=== PATIENT | female | born 1985 ===

== ENCOUNTER 2017-03-29 16:28 | Emergency (ER) | payer MEDICAID ==
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
--- NOTE | 2017-03-31 07:23 | RADIOLOGY REPORT ---
DATE: 03/29/2017. EXAM: LUMBAR SPINE. HISTORY: Back pain. TECHNIQUE: AP, lateral, and oblique views of the lumbar spine were performed. FINDINGS: There is normal height and alignment. No disc space narrowing. No spondylolysis or listhesis. The sacroiliac joints appear normal. IMPRESSION: NEGATIVE LUMBER SPINE EXAMINATION. JOB NUMBER: [id number] MTDD
--- NOTE | 2017-03-31 07:28 | RADIOLOGY REPORT ---
DATE: 03/29/2017. EXAM: LEFT KNEE. HISTORY: Pain. TECHNIQUE: Three views of the left knee were performed. FINDINGS: No evidence of fracture or dislocation. No radiopaque loose body. No joint effusion. IMPRESSION: NEGATIVE LEFT KNEE EXAMINATION. JOB NUMBER: [id number] MTDD
--- NOTE | 2017-03-31 07:31 | RADIOLOGY REPORT ---
DATE: 03/29/2017. EXAM: RIGHT FOOT. HISTORY: Pain. TECHNIQUE: Three views of the right foot were performed. FINDINGS: No evidence of fracture or dislocation. There is degenerative change of the first tarsal/metatarsal joint space. IMPRESSION: JOB NUMBER: [id number] MTDD
== END 2017-03-29 17:42 | disposition home or self-care (01) ==
LOC: ER 16:28
DX: S39.012A Strain of muscle, fascia and tendon of lower back, initial encounter (principal); S86.912A Strain of unspecified muscle(s) and tendon(s) at lower leg level, left leg, initial encounter; S90.31XA Contusion of right foot, initial encounter; W00.0XXA Fall on same level due to ice and snow, initial encounter; Z86.718 Personal history of other venous thrombosis and embolism; Z79.01 Long term (current) use of anticoagulants
CPT/HCPCS: 72110; 99283; 99284

== ENCOUNTER 2017-07-10 17:21 | Emergency (ER) | payer MEDICAID ==
[2017-07-10] MEDS ORDERED: HYOSCYAMINE SULFATE ODT 0.125 MG TAB.SUBL SL ONE (18:25)
[2017-07-10] MEDS ORDERED: ONDANSETRON HCL IV 4 MG/2 ML VIAL IVP ONE (18:25)
--- NOTE | 2017-07-10 18:29 | Emergency Department Record ---
History of Present Illness - General Chief complaint: Vomiting Stated complaint: VOMITING,DIARRHEA, NOT EATING X3 DAYS Source: Patient Mode of Arrival: Ambulatory Limitations: No limitations - History of Present Illness Initial comments: 31 yo female presents to ED for evaluation of nausea, vomiting, and loose stools for the past 3 days. Patient reports that she has been unable to keep anything down. Patient is concerned about possible recurrent pneumonia, does report mild-moderate diffuse abdominal pain as well. Patient denies fevers/ chills, denies health problems other than HTN. MD complaint: Abdominal pain Onset/Timin -: Days(s) Location: Diffuse Radiation: None Severity: Moderate Quality: Aching Consistency: Constant Improves with: None Worsens with: None Associated Symptoms: Nausea/vomiting - Related Data Previous Rx's Medication Instructions Recorded Hyoscyamine Sulfate [Levsin Odt] 0.125 mg PO Q6H PRN #15 tab.subl 07/10/17 Ondansetron [Zofran Odt] 4 mg PO Q6H PRN #15 tab.rapdis 07/10/17 Allergies Allergy/AdvReac Type Severity Reaction Status Date / Time sulfamethoxazole Allergy Intermediate vomit Verified 07/10/17 18:20 [From Bactrim] trimethoprim [From Bactrim] Allergy Intermediate vomit Verified 07/10/17 18:20 Sulfa (Sulfonamide Allergy Mild vomit Verified 07/10/17 18:20 Antibiotics) Review of Systems Constitutional: Denies: Chills, Fever, Malaise, Night sweats Eyes: Denies: Eye discharge, Eye pain ENT: Denies: Dental pain, Ear pain Respiratory: Denies: Cough, Dyspnea Cardiovascular: Denies: Chest pain, Dyspnea on exertion Endocrine: Denies: Fatigue, Heat or cold intolerance Gastrointestinal: Reports: Abdominal pain, Diarrhea, Nausea, Vomiting. Denies: Constipation Genitourinary: Denies: Incontinence, Retention Musculoskeletal: Denies: Arthralgia, Back pain, Gout, Joint swelling Skin: Denies: Bruising, Change in color Neurological: Denies: Abnormal gait, Confusion, Headache, Tingling Psychiatric: Denies: Anxiety Hematological/Lymphatic: Denies: Anemia, Blood Clots Past Medical History - SOCIAL HISTORY Smoking Status: Never smoker Drug Use: None - RESPIRATORY Hx Respiratory Disorders: Yes Hx Asthma: Yes Hx Pulmonary Embolism: Yes - CARDIOVASCULAR Hx Cardio Disorders: Yes Hx Deep Vein Thrombosis: Yes - NEURO Hx Neuro Disorders: No - GI Hx GI Disorders: No - Hx Genitourinary Disorders: No - ENDOCRINE Hx Endocrine Disorders: No - MUSCULOSKELETAL Hx Musculoskeletal Disorders: No - PSYCH Hx Psych Problems: Yes Hx Depression: Yes (bipolar/borderline personality) - HEMATOLOGY/ONCOLOGY Hx Hematology/Oncology Disorders: No Physical Exam - General General Appearance: Alert, Oriented x3, Cooperative, Mild distress Limitations: No limitations - Head Head exam: Atraumatic, Normocephalic, Normal inspection Head exam detail: negative: Abrasion, Contusion, Mazariegos's sign, General tenderness, Hematoma, Laceration - Eye Eye exam: Normal appearance. negative: Conjunctival injection, Periorbital swelling, Periorbital tenderness, Scleral icterus - ENT Ear exam: negative: Auricular hematoma, Auricular trauma Nasal Exam: negative: Active bleeding, Discharge, Dried blood Mouth exam: negative: Drooling, Laceration, Tongue elevation - Neck Neck exam: Normal inspection. negative: Meningismus, Tenderness - Respiratory Respiratory exam: Normal lung sounds bilaterally. negative: Respiratory distress, Rhonchi, Stridor, Wheezes - Cardiovascular Cardiovascular Exam: Regular rate, Normal rhythm, Normal heart sounds - GI/Abdominal GI/Abdominal exam: Soft, Tenderness. negative: Rebound, Rigid - Rectal Rectal exam: Deferred - exam: Deferred - Extremities Extremities exam: Normal inspection. negative: Calf tenderness, Pedal edema, Tenderness - Back Back exam: Denies: CVA tenderness (R), CVA tenderness (L) - Neurological Neurological exam: Alert, Normal gait, Oriented X3 - Psychiatric Psychiatric exam: Normal affect, Normal mood - Skin Skin exam: Normal color. negative: Abrasion Type of lesion: negative: abrasion Course - Reevaluation(s) Reevaluation #1: 07/10/17 19:55 CXR: No acute process UA: Negative for an acute process Reevaluation #2: 07/10/17 20:27 Labs reviewed, AG 18, CO2 17, labs are otherwise grossly unremarkable for an acute process. 2nd Liter NS infusing. Patient is also tolerating PO at this time. Reevaluation #3: 07/10/17 21:30 2nd Liter has nearly completed infusion. Patient has not had any vomiting or loose stools while in ED. Repeat abdominal examination continues to be benign withotu focal pain or tenderness on re-evaluation. Laboratory and physical examination fail to suggest a surgical process of the abdomen/pelvis, and the patient appears stable for discharge with symptomatic treatment as directed. Medical Decision Making - Lab Data Result diagrams: 07/10/17 20:04 07/10/17 20:04 Disposition Disposition: Discharge Clinical Impression: Nausea & vomiting Qualifiers: Vomiting type: unspecified Vomiting Intractability: non-intractable Qualified Code(s): R11.2 - Nausea with vomiting, unspecified Disposition: Home, Self-Care Condition: (2) Stable Instructions: Acute Nausea and Vomiting (ED) Additional Instructions: Return to ED if your symptoms worsen or if you have any concerns. Zofran and Levsin as directed. Follow-up with your family doctor in 3-5 days as directed. Prescriptions: Hyoscyamine Sulfate [Levsin Odt] 0.125 mg PO Q6H PRN #15 tab.subl PRN Reason: Abdominal Pain Ondansetron [Zofran Odt] 4 mg PO Q6H PRN #15 tab.rapdis PRN Reason: Nausea/Vomiting Forms: Patient Portal Access Time of Disposition: 20:28 Quality - Quality Measures Quality Measures: N/A - Blood Pressure Screening Does Patient Have Any of the Following: No Blood Pressure Classification: Pre-Hypertensive BP Reading Systolic Measurement: 107 Diastolic Measurement: 81 Screening for High Blood Pressure: < Pre-Hypertensive BP, F/U Documented > [ G8950] Pre-Hypertensive Follow-up Interventions: Referral to alternative/primary care provider.
[2017-07-10] MEDS ORDERED: 0.9 % SODIUM CHLORIDE 1000ML 1,000 ML IV SCH ×2 (18:30→20:30)
[2017-07-10 19:24] LABS: URINE APPEARANCE CLEAR; URINE BILIRUBIN NEGATIVE (NEGATIVE); URINE BLOOD NEGATIVE (NEGATIVE); URINE COLOR YELLOW; URINE GLUCOSE (UA) NEGATIVE (NEGATIVE); URINE KETONE NEGATIVE (NEGATIVE); URINE LEUKOCYTE ESTERASE SMALL (NEGATIVE); URINE NITRITE NEGATIVE (NEGATIVE); URINE PROTEIN NEGATIVE (NEGATIVE); URINE UROBILINOGEN 0.2 E.U./dL (0.20 - 1.00)
[2017-07-10 19:27] LABS: HCG,QUALITATIVE URINE NEGATIVE (NEGATIVE)
[2017-07-10 19:33] LABS: URINE BACTERIA FEW; URINE EPITHELIAL CELLS 0 - 2 (FEW); URINE RBC 0 - 2 (NONE SEEN)
[2017-07-10 20:03] LABS: BASO % 0.1 % (0-6); EOS % 2.4 % (0-6); GRAN % 46.4 % (47-80); HEMATOCRIT 38.3 % (35.0-47.0); LYMPH % 43.9 % (16-45); MEAN CELL VOLUME 92.1 fl (81-97); MEAN CORPUSCULAR HEMOGLOBIN 31.3 pg (27-33); MEAN CORPUSCULAR HGB CONC 33.9 g/dl (32-36); MEAN PLATELET VOLUME 9.2 fl (7.4-10.4); MONO % 7.2 % (0-9); PLATELET COUNT 304 K/uL (130-400); RED BLOOD COUNT 4.16 M/uL (3.80-5.40); RED CELL DISTRIBUTION WIDTH 13.1 % (11.5-14.5); WHITE BLOOD COUNT W/O DIFF 7.8 K/uL (4.2-12.2)
[2017-07-10 20:17] LABS: BLOOD UREA NITROGEN 8 mg/dL (6-20); CREATININE 0.5 mg/dL (0.5-0.9); EST GLOMERULAR FILTRATION RATE > 60 mL/min
[2017-07-10 20:18] LABS: TOTAL PROTEIN 7.3 g/dL (6.6-8.7)
[2017-07-10 20:20] LABS: GLUCOSE,RANDOM 99 mg/dL (74-109)
[2017-07-10 20:22] LABS: ALT/SGPT 20 U/L (<33)
[2017-07-10 20:23] LABS: ALB/GLOB RATIO 1.2 (1.1-1.8); ALKALINE PHOSPHATASE 97 U/L (35-104); AST/SGOT 24 U/L (10.0-35.0); LIPASE 31 U/L (13-60)
--- NOTE | 2017-07-12 10:51 | RADIOLOGY REPORT ---
EXAM: CHEST, TWO VIEWS HISTORY: DIFFICULTY BREATHING. TECHNIQUE: Frontal and lateral views of the chest were performed. FINDINGS: The heart size is normal. The lung orozco are clear. The osseous structures are normal. IMPRESSION: NEGATIVE CHEST EXAMINATION. JOB NUMBER: [id number] MTDD
== END 2017-07-10 21:50 | disposition home or self-care (01) ==
LOC: ER 17:21
DX: R11.2 Nausea with vomiting, unspecified (principal); R19.7 Diarrhea, unspecified; R10.9 Unspecified abdominal pain; I10 Essential (primary) hypertension
CPT/HCPCS: 99284 ×2; 96374; 96361; 83690; 85025; 80053; 81001; 81025; 71046; J1980; J2405; J7030

== ENCOUNTER 2019-01-25 14:37 | Emergency (ER) | payer MEDICARE, MEDICAID ==
[2019-01-25] MEDS ORDERED: TOPICAL LIDOCAINE W/ EPI 5 ML TOP ONE (14:48)
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
[2019-01-25] MEDS ORDERED: Diph,Pert(Acell),Tet Vac 0.5 ML SYR IM ONE (16:18)
== END 2019-01-25 16:48 | disposition home or self-care (01) ==
LOC: ER 14:37
DX: S00.33XA Contusion of nose, initial encounter (principal); S00.31XA Abrasion of nose, initial encounter; S80.01XA Contusion of right knee, initial encounter; Y04.2XXA Assault by strike against or bumped into by another person, initial encounter; Y92.199 Unspecified place in other specified residential institution as the place of occurrence of the external cause; Z79.01 Long term (current) use of anticoagulants; Z86.718 Personal history of other venous thrombosis and embolism
CPT/HCPCS: 70450; 72125; 90715; 96372; 99285